=== PATIENT | male | born 1950 | race African-American/Black ===

== ENCOUNTER 2023-11-09 10:08 | Emergency (ER) | payer MEDICAID, MEDICARE, OTHER | END 2023-11-09 10:40 | disposition home or self-care (01) | LOC: ERS 10:08 | DX: A69.1 Other Vincent's infections (principal); I10 Essential (primary) hypertension | CPT/HCPCS: 99282 ==

== ENCOUNTER 2024-12-07 10:40 | Emergency (ER) | payer OTHER | END 2024-12-07 12:18 | disposition home or self-care (01) | LOC: ERS 10:40 | DX: A69.1 Other Vincent's infections (principal) | CPT/HCPCS: 99282 ==

== ENCOUNTER 2024-12-13 14:16 | Inpatient (IN) | payer OTHER ==
[2024-12-13] MEDS ORDERED: Atropine Sulfate 1 mg/10 ml Syringe ONE ×2 (14:24→14:25)
[2024-12-13 14:53] LABS: #Basophils 0.04 10x3/uL (0.0-0.2); %Basophils 0.4 % (0.0-1.0); %Eosinophils 1.2 % (0.0-10.0); %Lymphocytes 19.2 % (21.0-51.0); %Monocytes 10.3 % (0.0-10.0); %Neutrophils 68.5 % (42.0-75.0); Hematocrit 41.7 % (42.0-52.0); Hemoglobin 14.6 g/dL (14.0-18.0); Mean Corpuscular Hemoglobin 32.4 pg (27.0-31.0); Mean Corpuscular Volume 92.5 fL (78.0-98.0); Mean Platelet Volume 11.8 fL (7.4-10.4); Platelet Count 171 10x3/uL (130-400); RBC Distribution Width 11.7 % (11.5-14.5); Red Blood Cell (RBC) Count 4.51 mill/uL (4.70-6.10)
[2024-12-13 15:00] LABS: PTT 27.8 sec (22.9-36.1)
[2024-12-13 15:07] LABS: INR-International Normal Ratio 1.5; Prothrombin Time 18.2 sec (12.0-14.7)
[2024-12-13 15:14] LABS: Troponin I 0.023 ng/mL (< 0.028)
[2024-12-13 15:25] LABS: Bacteria/HPF None Seen HPF (None Seen); Bilirubin Negative (Negative); Blood, Urine Negative (Negative); CAUTI Indications for Culture < 2yrs of age; Clarity Clear (Clear); Glucose, Urine (Dipstick) Normal (Negative); Ketone, Urine Negative (Negative); Leukocyte Negative Leu/uL (Negative); Nitrite Negative (Negative); Protein, Urine (Dipstick) 10 mg/dL (Neg-Trace); RBC/HPF 0-3 HPF (0-3); Specific Gravity, Urine 1.008 (1.002-1.036); Squamous Epithelial 0-3 HPF (0-3); Urobilinogen Normal mg/dL (Less than 2); WBC/HPF 0-3 HPF (0-3); pH, Urine 6.5 (5.0-9.0)
[2024-12-13 15:27] LABS: ALT (SGPT) 23 U/L (Less than 45); AST (SGOT) 41 U/L (11-34); Albumin 3.9 g/dL (3.1-4.5); Alkaline Phosphatase 64 U/L (40-110); Anion Gap 15 mmol/L (10-20); BUN (Urea Nitrogen) 14 mg/dL (8.4-25.7); Bilirubin, Total 2.8 mg/dL (0.3-1.2); Calc. Creatinine Clearance 0 mL/min (70-130); Calcium 10.1 mg/dL (7.8-10.44); Carbon Dioxide 24 mmol/L (23-31); Chloride 103 mmol/L (98-107); Estimated GFR 35; Globulin 3.8 g/dL (2.4-3.5); Glucose 122 mg/dL (83-110); Potassium 3.3 mmol/L (3.5-5.1); Protein, Total 7.7 g/dL (5.8-8.1); Sodium 139 mmol/L (136-145)
[2024-12-13 15:28] LABS: Amphetamine Not Detected (NotDetected); Barbiturates Screen Not Detected (NotDetected); Benzodiazepine Screen Not Detected (NotDetected); Cocaine Metabolite Screen Detected (NotDetected); Methadone Not Detected (NotDetected); Methamphetamine Not Detected (NotDetected); Opiate Screen Not Detected (NotDetected); Oxycodone Screen Not Detected (NotDetected); Phencyclidine (PCP) Not Detected (NotDetected); THC/Cannabinoid Screen Detected (NotDetected); Tricyclic Screen Not Detected (NotDetected)
[2024-12-13 15:29] LABS: Urine Culture Reflex Yes Yes
[2024-12-13 16:00] LABS: Actual Bicarbonate (HCO3a) 22.2 mEq/L (22-28); Analyzer IN Cardio ER; Base Excess (BEa) -1.9 mEq/L (-2.0 to +3.0); Calcium, Ionized (arterial) 1.28 mmol/L (1.12-1.30); Carboxyhemoglobin (COHb) 3.7 gm% (0.0-3.0); Hematocrit-ABG 44 % (42.0-52.0); Hemoglobin (Hb) 14.9 g/dL (14.0-18.0); O2 Tension (PaO2), arterial 150.7 mmHg (> 70.0); Potassium - ABG Lab 3.65 mmol/L (3.70-5.30); pH, Arterial 7.407 (7.35-7.45)
[2024-12-13 16:01] LABS: Puncture Site Right Radial artery
[2024-12-13] MEDS ORDERED: Calcium Carbonate 500 MG ChewTAB PO PRN (17:40)
[2024-12-13] MEDS ORDERED: Acetaminophen 325 MG TAB PO PRN (17:40)
[2024-12-13] MEDS ORDERED: Acetaminophen 650 MG Suppository PR PRN (17:40)
[2024-12-13] MEDS ORDERED: Senokot S 8.6-50 MG TAB PO PRN (17:40)
[2024-12-13] MEDS ORDERED: Bisacodyl 5 MG TAB PO PRN (17:40)
[2024-12-13 18:54] LABS: Acetaminophen Less than 10 mcg/mL (Less than 10); Alcohol Less than 10.0 mg/dL (Less than 10); CK (CPK) 299 U/L (30-200); Lipase 11 U/L (8-78); Salicylate Less than 8.0 mg/dL (Less than 8.0)
[2024-12-13 18:56] LABS: Troponin I 0.015 ng/mL (< 0.028)
[2024-12-13 21:25] VITALS: BMI 25.9
[2024-12-14] MEDS: Sodium Chloride 0.9% 1,000 ML IV SCH ×2 (04:06→12:01)
[2024-12-14 04:33] LABS: #Basophils 0.04 10x3/uL (0.0-0.2); %Basophils 0.4 % (0.0-1.0); %Eosinophils 3.2 % (0.0-10.0); %Lymphocytes 23.7 % (21.0-51.0); %Monocytes 9.6 % (0.0-10.0); %Neutrophils 62.5 % (42.0-75.0); Hematocrit 39.6 % (42.0-52.0); Hemoglobin 13.7 g/dL (14.0-18.0); Mean Corpuscular HGB CONC 34.6 g/dL (32.0-36.0); Mean Corpuscular Hemoglobin 32.6 pg (27.0-31.0); Mean Corpuscular Volume 94.3 fL (78.0-98.0); Platelet Count 146 10x3/uL (130-400); RBC Distribution Width 11.9 % (11.5-14.5)
[2024-12-14 04:57] LABS: Anion Gap 13 mmol/L (10-20); BUN (Urea Nitrogen) 16 mg/dL (8.4-25.7); Calc. Creatinine Clearance 45 mL/min (70-130); Calcium 9.4 mg/dL (7.8-10.44); Carbon Dioxide 25 mmol/L (23-31); Chloride 105 mmol/L (98-107); Cholesterol 147 mg/dl (< 200 Desired); Estimated GFR 45; Glucose 77 mg/dL (83-110); HDL Cholesterol 73 mg/dL (>60 Neg Risk); LDL Cholesterol, Calculated 61 mg/dL; Potassium 4.2 mmol/L (3.5-5.1); Sodium 139 mmol/L (136-145); Triglycerides 64 mg/dL (Less than 150)
[2024-12-14 05:06] LABS: Troponin I 0.012 ng/mL (< 0.028)
[2024-12-14] MEDS: Aspirin Chewable 81 MG TAB PO SCH (09:54)
[2024-12-15 04:32] LABS: Anion Gap 8 mmol/L (10-20); BUN (Urea Nitrogen) 12 mg/dL (8.4-25.7); CK (CPK) 92 U/L (30-200); Calc. Creatinine Clearance 52 mL/min (70-130); Calcium 8.5 mg/dL (7.8-10.44); Carbon Dioxide 26 mmol/L (23-31); Chloride 106 mmol/L (98-107); Estimated GFR 54; Glucose 88 mg/dL (83-110); Potassium 3.7 mmol/L (3.5-5.1); Sodium 136 mmol/L (136-145)
[2024-12-15] MEDS: NIFEdipine XL 30 MG ER.TAB PO SCH (09:09)
[2024-12-15 12:51] VITALS: BP 165/102; TEMP 98.4
== END 2024-12-15 12:15 | disposition home or self-care (01) | DRG 918 ==
LOC: ERS 14:16 → PCU 20:50
PROVIDERS: ADMIT Family Medicine; ATTEND Family Medicine
DX: T40.5X1A Poisoning by cocaine, accidental (unintentional), initial encounter (principal); M62.82 Rhabdomyolysis; N17.9 Acute kidney failure, unspecified; F14.129 Cocaine abuse with intoxication, unspecified; I25.2 Old myocardial infarction; I73.9 Peripheral vascular disease, unspecified; R55 Syncope and collapse; R00.1 Bradycardia, unspecified; N18.9 Chronic kidney disease, unspecified; I12.9 Hypertensive chronic kidney disease with stage 1 through stage 4 chronic kidney disease, or unspecified chronic kidney disease; F10.10 Alcohol abuse, uncomplicated; E86.0 Dehydration; F43.10 Post-traumatic stress disorder, unspecified; Z79.899 Other long term (current) drug therapy
CPT/HCPCS: 36415; 36416; 36600; 70450; 71045; 72125; 80048; 80053; 80061; 80306; 80307; 81001; 82140; 82550; 82805; 83605; 83690; 83735; 83880; 84443; 84484; 85025; 85610; 85730; 86850; 86900; 86901; 87040; 87086; 93005; 93306; 94760; 96374; J0461; J7030